=== PATIENT | male | born 1965 | race African-American/Black ===

== ENCOUNTER 2023-03-16 15:29 | Inpatient (IN) | payer OTHER ==
[2023-03-16 17:17] VITALS: BMI 19.0
[2023-03-16] MEDS ORDERED: MAGNESIUM HYDROX 2400MG/30ML ORAL SUSPENSION 30 ML CUP PO PRN (22:20)
[2023-03-16] MEDS ORDERED: COLLOIDAL OATMEAL 1 BAR EACH TP PRN (22:20)
[2023-03-16] MEDS ORDERED: LOPERAMIDE HCL 2 MG CAPSULE PO PRN (22:20)
[2023-03-16] MEDS ORDERED: POLYETHYLENE GLYCOL (HEALTHYLAX) 3350 17 GM PACKET PO PRN (22:20)
[2023-03-16] MEDS ORDERED: AMMONIUM LACTATE 12% LOTION 225 GM BOTTLE TP PRN (22:20)
[2023-03-16] MEDS ORDERED: MAG HYDROX/AL HYDROX/SIMETH 30 ML UNIT-DOSE CUP PO PRN (22:20)
[2023-03-16] MEDS ORDERED: guaiFENesin 600 MG TABLET.ER (FP) PO PRN (22:20)
[2023-03-16] MEDS ORDERED: ACETAMINOPHEN 325 MG TABLET (FP) PO PRN (22:20)
[2023-03-16] MEDS ORDERED: BENZONATATE 200 MG CAPSULE PO PRN (22:20)
[2023-03-16] MEDS: BENZOCAINE/MENTHOL (CHLORASEPTIC ) LOZENGE MM PRN (23:30)
[2023-03-17] MEDS ORDERED: TUBERCULIN PPD 5 TU/0.1ML SYRINGE (IN PATIENT USE ONLY) ID ONE (01:30)
[2023-03-17] MEDS ORDERED: TUBERCULIN PPD 5 TU/0.1ML VIAL ID ONE (01:39)
[2023-03-17] MEDS: PRENATAL VITAMINS W/ FOLIC ACID TABLET (FP) PO SCH (09:56)
[2023-03-17] MEDS: BENZOCAINE/MENTHOL (CHLORASEPTIC ) LOZENGE MM PRN ×2 (09:57→17:23)
[2023-03-17 13:24] LABS: HEMATOCRIT 39.5 % (35.4-49); HEMOGLOBIN 13.2 GM/dL (11.7-16.9); MCH 28.5 pg (25.7-33.7); MCHC 33.4 g/dl (32.0-35.9); MEAN CELL VOLUME 85.4 fl (80-96); MEAN PLT VOLUME 8.6 fl (7.5-11.1); PLATELET COUNT 276 10^3/uL (134-434); RBC 4.63 M/mm3 (4.00-5.60); RDW 14.5 % (11.9-15.9); WHITE BLOOD COUNT 7.9 K/mm3 (4.0-10.0)
[2023-03-17 14:32] LABS: HIV INTERPRETATION NEGATIVE (NEGATIVE)
[2023-03-17 14:33] LABS: SYPHILIS W/ RPR CONF REACTIVE (NONREACTIVE)
[2023-03-17 16:03] LABS: POTASSIUM 4.4 mmol/L (3.5-5.1)
[2023-03-17 16:05] LABS: CALCIUM 8.5 mg/dL (8.5-10.1)
[2023-03-17 16:06] LABS: ALBUMIN 2.9 g/dl (3.4-5.0); BLOOD UREA NITROGEN 8.2 mg/dL (7-18)
[2023-03-17 16:09] LABS: CREATININE 0.7 mg/dL (0.55-1.3)
[2023-03-17 16:11] LABS: BILIRUBIN,TOTAL 0.2 mg/dL (0.2-1); TOT PROT 6.3 g/dl (6.4-8.2)
[2023-03-17] MEDS: THIAMINE HCL 100 MG TABLET (FP) PO SCH (21:26)
[2023-03-18] MEDS: BENZOCAINE/MENTHOL (CHLORASEPTIC ) LOZENGE MM PRN (06:18)
[2023-03-18] MEDS: PRENATAL VITAMINS W/ FOLIC ACID TABLET (FP) PO SCH (09:37)
[2023-03-18] MEDS: NYSTATIN 500,000 UNITS/5 ML SUSPENSION PO SCH ×2 (14:07→17:44)
[2023-03-18] MEDS ORDERED: ACETAMINOPHEN 650 MG/20.3 ML ORAL SOLUTION (CUPS) PO PRN (21:20)
[2023-03-18] MEDS: AMOXICILLIN 500 MG CAPSULE (FP) PO SCH (22:22)
[2023-03-18] MEDS: THIAMINE HCL 100 MG TABLET (FP) PO SCH (22:22)
[2023-03-19] MEDS: NYSTATIN 500,000 UNITS/5 ML SUSPENSION PO SCH ×5 (00:06→23:51)
[2023-03-19] MEDS: AMOXICILLIN 500 MG CAPSULE (FP) PO SCH ×3 (06:38→21:19)
[2023-03-19] MEDS: PHENOL 177 ML SPRAY BOTTLE MM PRN ×3 (06:54→17:29)
[2023-03-19] MEDS: PRENATAL VITAMINS W/ FOLIC ACID TABLET (FP) PO SCH (09:40)
[2023-03-19] MEDS: IBUPROFEN 600 MG TABLET (FP) PO PRN ×2 (09:43→17:17)
[2023-03-19 12:10] LABS: PH,URINE 6.5 (5.0-8.0); URINE APPEARANCE CLEAR; URINE BILIRUBIN NEGATIVE (NEGATIVE); URINE COLOR YELLOW; URINE GLUCOSE (UA) NEGATIVE (NEGATIVE); URINE KETONE NEGATIVE (NEGATIVE); URINE LEUK ESTERASE NEGATIVE (NEGATIVE); URINE NITRITE NEGATIVE (NEGATIVE); URINE PROTEIN NEGATIVE (NEGATIVE)
[2023-03-19] MEDS: THIAMINE HCL 100 MG TABLET (FP) PO SCH (21:19)
[2023-03-20] MEDS: AMOXICILLIN 500 MG CAPSULE (FP) PO SCH ×3 (07:26→21:11)
[2023-03-20] MEDS: NYSTATIN 500,000 UNITS/5 ML SUSPENSION PO SCH ×3 (07:26→18:34)
[2023-03-20] MEDS: IBUPROFEN 400 MG TABLET (FP) PO PRN ×2 (09:46→21:13)
[2023-03-20] MEDS: PRENATAL VITAMINS W/ FOLIC ACID TABLET (FP) PO SCH (09:47)
[2023-03-20] MEDS: THIAMINE HCL 100 MG TABLET (FP) PO SCH (21:11)
[2023-03-20] MEDS: PHENOL 177 ML SPRAY BOTTLE MM PRN (21:15)
[2023-03-21] MEDS: NYSTATIN 500,000 UNITS/5 ML SUSPENSION PO SCH ×4 (01:08→18:50)
[2023-03-21] MEDS: AMOXICILLIN 500 MG CAPSULE (FP) PO SCH ×3 (06:46→21:22)
[2023-03-21] MEDS: PHENOL 177 ML SPRAY BOTTLE MM PRN ×2 (06:47→21:23)
[2023-03-21] MEDS: PRENATAL VITAMINS W/ FOLIC ACID TABLET (FP) PO SCH (09:57)
[2023-03-21] MEDS: THIAMINE HCL 100 MG TABLET (FP) PO SCH (21:22)
[2023-03-22] MEDS: NYSTATIN 500,000 UNITS/5 ML SUSPENSION PO SCH ×4 (01:36→18:28)
[2023-03-22] MEDS: PHENOL 177 ML SPRAY BOTTLE MM PRN ×2 (06:50→21:18)
[2023-03-22] MEDS: AMOXICILLIN 500 MG CAPSULE (FP) PO SCH ×3 (06:53→21:17)
[2023-03-22] MEDS: PRENATAL VITAMINS W/ FOLIC ACID TABLET (FP) PO SCH (09:40)
[2023-03-22] MEDS: THIAMINE HCL 100 MG TABLET (FP) PO SCH (21:17)
[2023-03-23] MEDS: NYSTATIN 500,000 UNITS/5 ML SUSPENSION PO SCH ×4 (01:24→17:37)
[2023-03-23] MEDS: AMOXICILLIN 500 MG CAPSULE (FP) PO SCH ×3 (06:46→21:31)
[2023-03-23] MEDS: PRENATAL VITAMINS W/ FOLIC ACID TABLET (FP) PO SCH (09:39)
[2023-03-23] MEDS: MELATONIN 5 MG TABLETS PO PRN (21:31)
[2023-03-23] MEDS: THIAMINE HCL 100 MG TABLET (FP) PO SCH (21:31)
[2023-03-24] MEDS: NYSTATIN 500,000 UNITS/5 ML SUSPENSION PO SCH ×4 (01:02→17:58)
[2023-03-24] MEDS: AMOXICILLIN 500 MG CAPSULE (FP) PO SCH ×3 (06:18→21:25)
[2023-03-24] MEDS: PRENATAL VITAMINS W/ FOLIC ACID TABLET (FP) PO SCH (10:00)
[2023-03-24] MEDS: THIAMINE HCL 100 MG TABLET (FP) PO SCH (21:25)
[2023-03-24] MEDS: PHENOL 177 ML SPRAY BOTTLE MM PRN (21:25)
[2023-03-24] MEDS: MELATONIN 5 MG TABLETS PO PRN (21:25)
[2023-03-25] MEDS: NYSTATIN 500,000 UNITS/5 ML SUSPENSION PO SCH ×4 (01:05→18:03)
[2023-03-25] MEDS: AMOXICILLIN 500 MG CAPSULE (FP) PO SCH ×3 (06:52→21:21)
[2023-03-25] MEDS: PRENATAL VITAMINS W/ FOLIC ACID TABLET (FP) PO SCH (10:15)
[2023-03-25] MEDS: THIAMINE HCL 100 MG TABLET (FP) PO SCH (21:21)
[2023-03-26] MEDS: AMOXICILLIN 500 MG CAPSULE (FP) PO SCH ×3 (06:37→21:16)
[2023-03-26] MEDS: NYSTATIN 500,000 UNITS/5 ML SUSPENSION PO SCH ×4 (06:37→17:39)
[2023-03-26] MEDS: PRENATAL VITAMINS W/ FOLIC ACID TABLET (FP) PO SCH (10:10)
[2023-03-26] MEDS: THIAMINE HCL 100 MG TABLET (FP) PO SCH (21:16)
[2023-03-26] MEDS: MELATONIN 5 MG TABLETS PO PRN (21:16)
[2023-03-26] MEDS: PHENOL 177 ML SPRAY BOTTLE MM PRN (21:18)
[2023-03-27] MEDS: NYSTATIN 500,000 UNITS/5 ML SUSPENSION PO SCH ×4 (00:02→17:57)
[2023-03-27] MEDS: AMOXICILLIN 500 MG CAPSULE (FP) PO SCH ×3 (06:54→21:12)
[2023-03-27] MEDS: PRENATAL VITAMINS W/ FOLIC ACID TABLET (FP) PO SCH (09:46)
[2023-03-27] MEDS: MELATONIN 5 MG TABLETS PO PRN (21:12)
[2023-03-27] MEDS: THIAMINE HCL 100 MG TABLET (FP) PO SCH (21:12)
[2023-03-27] MEDS: PHENOL 177 ML SPRAY BOTTLE MM PRN (21:13)
[2023-03-28] MEDS: NYSTATIN 500,000 UNITS/5 ML SUSPENSION PO SCH ×5 (00:51→23:38)
[2023-03-28] MEDS: P-EPHED 60MG/TRIPROLIDI 2.5MG TABLET PO PRN ×2 (01:08→20:20)
[2023-03-28] MEDS: PRENATAL VITAMINS W/ FOLIC ACID TABLET (FP) PO SCH (10:32)
[2023-03-28] MEDS: MELATONIN 5 MG TABLETS PO PRN (21:13)
[2023-03-28] MEDS: THIAMINE HCL 100 MG TABLET (FP) PO SCH (21:14)
[2023-03-29] MEDS: NYSTATIN 500,000 UNITS/5 ML SUSPENSION PO SCH ×4 (06:54→23:07)
[2023-03-29] MEDS: PRENATAL VITAMINS W/ FOLIC ACID TABLET (FP) PO SCH (10:04)
[2023-03-29] MEDS: THIAMINE HCL 100 MG TABLET (FP) PO SCH (21:27)
[2023-03-29] MEDS: PHENOL 177 ML SPRAY BOTTLE MM PRN (21:29)
[2023-03-29] MEDS: P-EPHED 60MG/TRIPROLIDI 2.5MG TABLET PO PRN (23:08)
[2023-03-30] MEDS: NYSTATIN 500,000 UNITS/5 ML SUSPENSION PO SCH ×3 (06:56→18:57)
[2023-03-30] MEDS: PRENATAL VITAMINS W/ FOLIC ACID TABLET (FP) PO SCH (09:50)
[2023-03-30] MEDS: PHENOL 177 ML SPRAY BOTTLE MM PRN (09:51)
[2023-03-30] MEDS: THIAMINE HCL 100 MG TABLET (FP) PO SCH (21:40)
[2023-03-30] MEDS: MELATONIN 5 MG TABLETS PO PRN (21:40)
[2023-03-31] MEDS: NYSTATIN 500,000 UNITS/5 ML SUSPENSION PO SCH ×2 (02:08→07:03)
[2023-03-31 07:24] VITALS: BP 108/58; PULSE 64; RESP 16; TEMP 97.5
[2023-03-31] MEDS: PRENATAL VITAMINS W/ FOLIC ACID TABLET (FP) PO SCH (09:40)
== END 2023-03-31 10:15 | disposition home or self-care (01) | DRG 772 ==
LOC: YASAS 15:29 → Y5N 03-17 01:19
PROVIDERS: ADMIT Allergy & Immunology; ATTEND Psychiatry & Neurology Pain Medicine
PROC: HZ42ZZZ Group Counseling for Substance Abuse Treatment, Cognitive-Behavioral (ICD-10-PCS; principal; 2023-03-17)
DX: F14.20 Cocaine dependence, uncomplicated (principal); F10.10 Alcohol abuse, uncomplicated; F17.210 Nicotine dependence, cigarettes, uncomplicated; B37.0 Candidal stomatitis; R07.0 Pain in throat
CPT/HCPCS: 36415; 80053; 81003; 85027; 86593; 86780; 86803; 87389; 87491; 87591; 87635; 87651; 87661

== ENCOUNTER 2023-05-25 16:20 | Inpatient (IN) | payer OTHER ==
[2023-05-25 18:18] VITALS: BMI 19.1
[2023-05-25] MEDS ORDERED: MAGNESIUM HYDROX 2400MG/30ML ORAL SUSPENSION 30 ML CUP PO PRN (21:04)
[2023-05-25] MEDS ORDERED: BISMUTH SUBSALICYLATE 524 MG/30 ML PO PRN (21:04)
[2023-05-25] MEDS ORDERED: DICYCLOMINE HCL 10 MG CAPSULE PO PRN (21:04)
[2023-05-25] MEDS ORDERED: ACETAMINOPHEN 325 MG TABLET (FP) PO PRN (21:04)
[2023-05-25] MEDS ORDERED: POLYETHYLENE GLYCOL (HEALTHYLAX) 3350 17 GM PACKET PO PRN (21:04)
[2023-05-25] MEDS ORDERED: guaiFENesin 600 MG TABLET.ER (FP) PO PRN (21:04)
[2023-05-25] MEDS ORDERED: IBUPROFEN 400 MG TABLET (FP) PO PRN (21:04)
[2023-05-25] MEDS ORDERED: IBUPROFEN 600 MG TABLET (FP) PO PRN (21:04)
[2023-05-25] MEDS ORDERED: MAG HYDROX/AL HYDROX/SIMETH 30 ML UNIT-DOSE CUP PO PRN (21:04)
[2023-05-25] MEDS ORDERED: LOPERAMIDE HCL 2 MG CAPSULE PO PRN (21:04)
[2023-05-25] MEDS ORDERED: ONDANSETRON *ODT* 4 MG TABLET SL PRN (21:04)
[2023-05-25] MEDS ORDERED: BENZONATATE 200 MG CAPSULE PO PRN (21:04)
[2023-05-25] MEDS ORDERED: BENZOCAINE/MENTHOL (CHLORASEPTIC ) LOZENGE MM PRN (21:04)
[2023-05-25] MEDS ORDERED: P-EPHED 60MG/TRIPROLIDI 2.5MG TABLET PO PRN (21:04)
[2023-05-25] MEDS: MELATONIN 5 MG TABLETS PO SCH (21:57)
[2023-05-25] MEDS: THIAMINE HCL 100 MG TABLET (FP) PO SCH (21:58)
[2023-05-26] MEDS: PRENATAL VITAMINS W/ FOLIC ACID TABLET (FP) PO SCH (10:05)
[2023-05-26] MEDS: MELATONIN 5 MG TABLETS PO SCH (22:39)
[2023-05-26] MEDS: hydrOXYzine PAMOATE 25 MG CAPSULE (FP) PO PRN (22:39)
[2023-05-26] MEDS: THIAMINE HCL 100 MG TABLET (FP) PO SCH (22:39)
[2023-05-27] MEDS: PRENATAL VITAMINS W/ FOLIC ACID TABLET (FP) PO SCH (09:55)
[2023-05-27] MEDS ORDERED: diazePAM 5 MG TABLET PO PRN (10:29)
[2023-05-27] MEDS: diazePAM 5 MG TABLET PO SCH ×3 (10:53→22:10)
[2023-05-27] MEDS: THIAMINE HCL 100 MG TABLET (FP) PO SCH (22:10)
[2023-05-27] MEDS: hydrOXYzine PAMOATE 25 MG CAPSULE (FP) PO PRN (22:10)
[2023-05-27] MEDS: MELATONIN 5 MG TABLETS PO SCH (22:10)
[2023-05-28] MEDS: diazePAM 5 MG TABLET PO SCH ×4 (06:00→22:55)
[2023-05-28] MEDS: PRENATAL VITAMINS W/ FOLIC ACID TABLET (FP) PO SCH (10:24)
[2023-05-28] MEDS: THIAMINE HCL 100 MG TABLET (FP) PO SCH (22:52)
[2023-05-28] MEDS: hydrOXYzine PAMOATE 25 MG CAPSULE (FP) PO PRN (22:52)
[2023-05-28] MEDS: MELATONIN 5 MG TABLETS PO SCH (22:52)
[2023-05-29] MEDS: diazePAM 5 MG TABLET PO SCH ×3 (05:33→22:58)
[2023-05-29] MEDS: PRENATAL VITAMINS W/ FOLIC ACID TABLET (FP) PO SCH (09:54)
[2023-05-29] MEDS: THIAMINE HCL 100 MG TABLET (FP) PO SCH (22:58)
[2023-05-29] MEDS: MELATONIN 5 MG TABLETS PO SCH (22:58)
[2023-05-30] MEDS: diazePAM 5 MG TABLET PO SCH ×2 (05:54→17:36)
[2023-05-30] MEDS: PRENATAL VITAMINS W/ FOLIC ACID TABLET (FP) PO SCH (10:19)
[2023-05-30] MEDS: THIAMINE HCL 100 MG TABLET (FP) PO SCH (22:24)
[2023-05-30] MEDS: MELATONIN 5 MG TABLETS PO SCH (22:24)
[2023-05-31] MEDS ORDERED: diazePAM 5 MG TABLET PO ONE (06:00)
[2023-05-31] MEDS: PRENATAL VITAMINS W/ FOLIC ACID TABLET (FP) PO SCH (09:39)
[2023-05-31 09:42] VITALS: BP 97/60; PULSE 68; RESP 17; TEMP 97.7
== END 2023-05-31 09:12 | disposition home or self-care (01) | DRG 774 ==
LOC: YASAS 16:20 → Y3N 21:35
PROVIDERS: ADMIT Allergy & Immunology; ATTEND Surgery
PROC: HZ2ZZZZ Detoxification Services for Substance Abuse Treatment (ICD-10-PCS; principal; 2023-05-25)
DX: F10.230 Alcohol dependence with withdrawal, uncomplicated (principal); F14.20 Cocaine dependence, uncomplicated; Z88.0 Allergy status to penicillin
CPT/HCPCS: 87635; 87811